=== PATIENT | female | born 2000 | race Caucasian/White ===

== ENCOUNTER 2021-07-13 02:07 | Inpatient (IN) | payer MEDICAID ==
[~2021-07-13] VITALS: Ht 160 cm; Wt 72.6 kg
[2021-07-13] MEDS ORDERED: DEXT 5%/LR + PITOCIN 20UNITS/L 1,000 ML IV SCH (03:00)
[2021-07-13] MEDS ORDERED: LACTATED RINGERS 1,000 ML IV SCH (03:00)
[2021-07-13 03:13] LABS: BASOPHILS % 0.1 % (0.0-2.0); HEMOGLOBIN. 9.4 g/dL (12.0-16.0); LYMPHOCYTES % 12.8 % (20.0-50.0); MEAN CORPUSCULAR HEMOGLOBIN 31.2 pg (28.0-32.0); MEAN CORPUSCULAR VOLUME 89.6 fL (80.0-94.0); MEAN PLATELET VOLUME 7.3 fl (7.4-10.4); MONOCYTES % 7.1 % (2.0-8.0); PLATELET 165 x1000/uL (130-400); RED BLOOD CELL COUNT 3.01 mill/uL (4.2-5.4); RED CELL DISTRIBUTION WIDTH 14.6 % (11.6-14.6)
[2021-07-13 03:15] LABS: CLARITY URINE CLOUDY (CLEAR); COLOR URINE YELLOW (YELLOW); KETONES URINE TRACE (NEGATIVE); LEUKOCYTE ESTERASE URINE NEGATIVE (NEGATIVE); NITRITE URINE NEGATIVE (NEGATIVE); OCCULT BLOOD URINE 3+ (NEGATIVE); PROTEIN URINE 4+ (NEGATIVE); SPECIFIC GRAVITY URINE 1.035 (1.005-1.030); UROBILINOGEN URINE 0.2 E.U./dL (0.2-1.0)
[2021-07-13] MEDS ORDERED: FENTANYL CITRATE/PF 50MCG/ML 2ML VIAL ONE (03:25)
[2021-07-13 03:27] LABS: INR 1.2; PARTIAL THROMBOPLASTIN TIME 29.6 sec (23.4-31.0); PROTHROMBIN TIME 12.3 sec (9.6-11.0)
[2021-07-13] MEDS ORDERED: CEFAZOLIN SODIUM 1000MG/VIAL ONE (03:28)
[2021-07-13] MEDS ORDERED: LIDOCAINE HCL 1% 10 MG/ML 10ML VIAL ONE (03:28)
[2021-07-13] MEDS ORDERED: SUCCINYLCHOLINE CHLORIDE 200MG/10ML IV ONE (03:28)
[2021-07-13] MEDS ORDERED: ONDANSETRON HCL 4MG/2ML INJ ONE (03:28)
[2021-07-13] MEDS ORDERED: OXYTOCIN 10 UNITS/ML 1ML ONE (03:28)
[2021-07-13] MEDS ORDERED: STERILE WATER FOR INJECTION 10ML VIAL ONE (03:28)
[2021-07-13] MEDS ORDERED: DEXAMETHASONE 4MG/ML 1ML VIAL ONE (03:28)
[2021-07-13 03:32] LABS: *BENZODIAZEPINES SCREEN URINE NEGATIVE (NEGATIVE); *COCAINE SCREEN URINE NEGATIVE (NEGATIVE); METHADONE URINE SCREEN NEGATIVE (NEGATIVE); OPIATES URINE SCREEN NEGATIVE (NEGATIVE)
[2021-07-13 03:33] LABS: CANNABINOID URINE SCREEN NEGATIVE (NEGATIVE); PHENCYCLIDINE URINE SCREEN NEGATIVE (NEGATIVE)
[2021-07-13 03:35] LABS: *AMPHETAMINES SCREEN URINE NEGATIVE (NEGATIVE); *BARBITURATES SCREEN URINE NEGATIVE (NEGATIVE)
[2021-07-13] MEDS ORDERED: MIDAZOLAM HCL 2 MG/2 ML VIAL ONE (03:37)
[2021-07-13] MEDS ORDERED: HYDROCODONE/ACETAMINOPHEN 5/325MG TABLET PO PRN (03:45)
[2021-07-13] MEDS ORDERED: DIPHENHYDRAMINE 25MG CAPSULE PO PRN (03:45)
[2021-07-13] MEDS ORDERED: BISACODYL 10MG SUPP PR PRN (03:45)
[2021-07-13] MEDS ORDERED: ONDANSETRON HCL 4MG/2ML INJ IV PRN (03:45)
[2021-07-13] MEDS ORDERED: IBUPROFEN 400MG TABLET PO PRN (03:45)
[2021-07-13] MEDS ORDERED: LANOLIN OINT 7GM TUBE TOP PRN (03:45)
[2021-07-13] MEDS ORDERED: RHO(D) IMMUNE GLOBULIN 300 MCG/SYR IM PRN (03:45)
[2021-07-13] MEDS ORDERED: HEMORRHOIDAL SUPP PR PRN (03:45)
[2021-07-13 03:50] LABS: HEPATITIS B SURFACE ANTIGEN NEGATIVE
[2021-07-13] MEDS ORDERED: MORPHINE SULFATE 2 MG/ML CPJ (NOT FOR IM USE) IV PRN (04:15)
[2021-07-13] MEDS ORDERED: FENTANYL CITRATE/PF 50MCG/ML 2ML VIAL IV PRN (04:30)
[2021-07-13] MEDS ORDERED: HYDROMORPHONE HCL/PF 2MG/ML CPJ IV PRN (04:30)
[2021-07-13] MEDS ORDERED: KETOROLAC 30MG/ML VIAL IV PRN (04:30)
[2021-07-13] MEDS ORDERED: MISOPROSTOL 200MCG TABLET PO NR (05:15)
[2021-07-13 05:50] VITALS: BP 137/91
[2021-07-13] MEDS: DEXT 5%/LR + PITOCIN 20UNITS/L 1,000 ML IV SCH ×2 (06:03→14:27)
[2021-07-13 07:30] VITALS: BP 122/86
[2021-07-13] MEDS: SIMETHICONE 80MG TABLET CHEW PO SCH ×4 (07:50→21:06)
[2021-07-13 08:00] LABS: BASOPHILS % 0.1 % (0.0-2.0); EOSINOPHILS % 0.1 % (0.0-5.0); HEMATOCRIT. 21.6 % (36.0-48.0); HEMOGLOBIN. 7.2 g/dL (12.0-16.0); MEAN CORPUSCULAR HEMOGLOBIN 30.7 pg (28.0-32.0); MEAN CORPUSCULAR VOLUME 91.9 fL (81.0-99.0); MEAN PLATELET VOLUME 6.7 fl (7.4-10.4); MONOCYTES % 5.8 % (2.0-8.0); PLATELET 91 x1000/uL (130-400); RED BLOOD CELL COUNT 2.35 mill/uL (4.2-5.4)
[2021-07-13] MEDS: KETOROLAC 30MG/ML VIAL IV PRN ×3 (09:39→23:03)
[2021-07-13 12:30] VITALS: BP 116/73
[2021-07-13] MEDS: MAGNESIUM/ALUMINUM HYDROXIDE/SIMETHICONE 30ML UDC PO SCH ×2 (17:04→21:04)
[2021-07-13 17:06] VITALS: BP 128/79
[2021-07-13] MEDS ORDERED: NALOXONE HCL 0.4MG/ML VIAL IV PRN (18:00)
[2021-07-13 19:30] VITALS: BP 137/76
[2021-07-13] MEDS: DOCUSATE SODIUM 100MG CAPSULE PO SCH (21:05)
[2021-07-14] VITALS (11 sets, daily range): BP systolic 104–130; BP diastolic 69–85
[2021-07-14] MEDS: IBUPROFEN 800MG TABLET PO PRN ×3 (04:53→21:47)
[2021-07-14 07:47] LABS: BASOPHILS % 0.1 % (0.0-2.0); EOSINOPHILS % 0.3 % (0.0-5.0); LYMPHOCYTES % 18.6 % (20.0-50.0); MEAN CORPUSCULAR HEMOGLOBIN 31.1 pg (28.0-32.0); MEAN CORPUSCULAR VOLUME 90.4 fL (81.0-99.0); MEAN PLATELET VOLUME 9.1 fl (7.4-10.4); MONOCYTES % 7.2 % (2.0-8.0); NEUTROPHILS % 73.8 % (40.0-76.0); PLATELET 66 x1000/uL (130-400); RED BLOOD CELL COUNT 1.16 mill/uL (4.2-5.4); RED CELL DISTRIBUTION WIDTH 15.1 % (11.6-14.6)
[2021-07-14 07:51] LABS: HEMATOCRIT. 10.4 % (36.0-48.0); HEMOGLOBIN. 3.6 g/dL (12.0-16.0)
[2021-07-14] MEDS: FERROUS SULFATE 325MG TABLET PO SCH ×3 (07:58→18:05)
[2021-07-14] MEDS: MAGNESIUM/ALUMINUM HYDROXIDE/SIMETHICONE 30ML UDC PO SCH ×4 (07:58→21:48)
[2021-07-14] MEDS: PRENATAL VIT/FE FUMARATE/FA TABLET PO SCH (07:58)
[2021-07-14 18:10] LABS: BASOPHILS % 0.5 % (0.0-2.0); EOSINOPHILS % 0.2 % (0.0-5.0); HEMATOCRIT. 22.9 % (36.0-48.0); HEMOGLOBIN. 7.5 g/dL (12.0-16.0); LYMPHOCYTES % 17.6 % (20.0-50.0); MEAN CORPUSCULAR VOLUME 88.2 fL (81.0-99.0); MEAN PLATELET VOLUME 8.6 fl (7.4-10.4); MONOCYTES % 6.3 % (2.0-8.0); NEUTROPHILS % 75.4 % (40.0-76.0); PLATELET 76 x1000/uL (130-400); RED CELL DISTRIBUTION WIDTH 14.9 % (11.6-14.6)
[2021-07-14] MEDS: DOCUSATE SODIUM 100MG CAPSULE PO SCH (21:49)
[2021-07-14] MEDS: SIMETHICONE 80MG TABLET CHEW PO SCH (21:51)
[2021-07-15] MEDS: IBUPROFEN 800MG TABLET PO PRN ×3 (03:58→21:17)
[2021-07-15 04:00] VITALS: BP 128/80
[2021-07-15 07:30] VITALS: BP 127/82
[2021-07-15] MEDS: SIMETHICONE 80MG TABLET CHEW PO SCH ×4 (08:56→21:17)
[2021-07-15] MEDS: FERROUS SULFATE 325MG TABLET PO SCH ×3 (08:56→18:07)
[2021-07-15] MEDS: MAGNESIUM/ALUMINUM HYDROXIDE/SIMETHICONE 30ML UDC PO SCH ×4 (08:56→21:17)
[2021-07-15] MEDS: PRENATAL VIT/FE FUMARATE/FA TABLET PO SCH (08:56)
[2021-07-15 16:15] VITALS: BP 128/66
[2021-07-15 17:02] LABS: HEMATOCRIT 21.5 % (36.0-48.0); HEMOGLOBIN 7.4 g/dL (12.0-16.0); MEAN CORPUSCULAR HEMOGLOBIN 30.3 pg (28.0-32.0); MEAN CORPUSCULAR VOLUME 88.6 fL (81.0-99.0); PLATELET 104 x1000/uL (130-400); RED BLOOD CELL COUNT 2.43 mill/uL (4.2-5.4); RED CELL DISTRIBUTION WIDTH 15.2 % (11.6-14.6)
[2021-07-15 20:00] VITALS: BP 131/85
[2021-07-15] MEDS: DOCUSATE SODIUM 100MG CAPSULE PO SCH (21:17)
[2021-07-16] VITALS: BP 128/58
[2021-07-16 04:00] VITALS: BP 130/76
[2021-07-16] MEDS: IBUPROFEN 800MG TABLET PO PRN (04:21)
[2021-07-16] MEDS ORDERED: IBUP-2030 PO (06:58)
[2021-07-16 07:34] LABS: BASOPHILS % 0.1 % (0.0-2.0); EOSINOPHILS % 1.3 % (0.0-5.0); LYMPHOCYTES % 17.8 % (20.0-50.0); MEAN CORPUSCULAR HEMOGLOBIN 31.3 pg (28.0-32.0); MEAN CORPUSCULAR VOLUME 88.7 fL (81.0-99.0); MEAN PLATELET VOLUME 8.3 fl (7.4-10.4); MONOCYTES % 5.1 % (2.0-8.0); NEUTROPHILS % 75.7 % (40.0-76.0); PLATELET 121 x1000/uL (130-400); RED CELL DISTRIBUTION WIDTH 15.2 % (11.6-14.6)
[2021-07-16 07:35] VITALS: BP 134/83
[2021-07-16 08:22] LABS: HEMATOCRIT. 19.5 % (36.0-48.0); HEMOGLOBIN. 6.9 g/dL (12.0-16.0)
[2021-07-16] MEDS: MAGNESIUM/ALUMINUM HYDROXIDE/SIMETHICONE 30ML UDC PO SCH ×2 (08:44→13:41)
[2021-07-16] MEDS: PRENATAL VIT/FE FUMARATE/FA TABLET PO SCH (08:46)
[2021-07-16] MEDS: FERROUS SULFATE 325MG TABLET PO SCH ×2 (08:46→13:40)
[2021-07-16] MEDS: SIMETHICONE 80MG TABLET CHEW PO SCH ×2 (08:47→13:41)
== END 2021-07-16 13:52 | disposition home or self-care (01) | DRG 540 ==
LOC: OBSVTOIN 02:07 → EDSEX 02:07 → 8 EST LDRP 02:07 → 8EST 06:12
PROVIDERS: ADMIT Obstetrics & Gynecology; ATTEND Obstetrics & Gynecology
PROC: 10D00Z1 Extraction of Products of Conception, Low, Open Approach (ICD-10-PCS; principal; 2021-07-13)
PROC: 30233N1 Transfusion of Nonautologous Red Blood Cells into Peripheral Vein, Percutaneous Approach (ICD-10-PCS; 2021-07-14)
DX: O45.93 Premature separation of placenta, unspecified, third trimester (principal); D62 Acute posthemorrhagic anemia; O99.02 Anemia complicating childbirth; Z37.0 Single live birth; Z3A.32 32 weeks gestation of pregnancy; Z20.822 Contact with and (suspected) exposure to COVID-19
CPT/HCPCS: 36415; 80305; 81003; 85025; 85027; 86592; 86703; 86762; 86850; 86900; 86920; 87340; 87426; 88307; 99281; A4216; J0330; J0690; J1100; J1170; J1885; J2250; J2405; J2590; J3010; J3490; J7040; J7120; P9016; P9021; A4315